=== PATIENT | female | born 1990 | race Caucasian/White ===

== ENCOUNTER 2017-03-26 15:43 | Emergency (ER) | payer MEDICAID, OTHER ==
[~2017-03-26] VITALS: Ht 162.6 cm; Wt 61.2 kg
[2017-03-26 17:22] LABS: METHADONE URINE NEGATIVE (NEGATIVE)
[2017-03-26 17:49] LABS: MEAN CORPUSCULAR HEMOGLOBIN 28.6 pg (27.0-33.0); MEAN CORPUSCULAR HGB CONC 33.1 g/dl (32.0-36.5); MEAN CORPUSCULAR VOLUME 86.3 fl (80.0-96.0); RED CELL DISTRIBUTION WIDTH 13.8 % (11.5-14.5); WHITE BLOOD COUNT 14.5 K/mm3 (4.0-10.0)
[2017-03-26 18:01] LABS: CONTROL LINE HCG INT CTR LINE PRESENT
[2017-03-26 18:16] LABS: ALBUMIN 3.9 GM/DL (3.2-5.2); ALBUMIN/GLOBULIN RATIO 1.03 (1.00-1.93); ALKALINE PHOSPHATASE 62 U/L (45-117); ALT/SGPT 18 U/L (12-78); ANION GAP 8 MEQ/L (8-16); AST/SGOT 19 U/L (15-37); BILIRUBIN,DIRECT 0.2 MG/DL (0.0-0.2); BILIRUBIN,TOTAL 0.7 MG/DL (0.2-1.0); BLOOD UREA NITROGEN 15 MG/DL (7-18); CALCIUM LEVEL 8.6 MG/DL (8.5-10.1); CARBON DIOXIDE LEVEL 26 MEQ/L (21-32); CHLORIDE LEVEL 105 MEQ/L (98-107); CREATININE FOR GFR 0.99 MG/DL (0.55-1.02); GLOMERULAR FILTRATION RATE > 60.0 (>60); GLUCOSE, FASTING 77 MG/DL (70-105); POTASSIUM SERUM 3.7 MEQ/L (3.5-5.1); SODIUM LEVEL 139 MEQ/L (136-145); TOTAL PROTEIN 7.7 GM/DL (6.4-8.2)
[2017-03-26 21:03] VITALS: BP 139/86
== END 2017-03-26 21:04 | disposition home or self-care (01) ==
LOC: M ED 16:56 → MERGE 16:56 → M ED 21:04
DX: F32.9 Major depressive disorder, single episode, unspecified (principal); F19.10 Other psychoactive substance abuse, uncomplicated; F17.200 Nicotine dependence, unspecified, uncomplicated

== ENCOUNTER 2017-03-27 04:05 | Emergency (ER) | payer OTHER ==
[~2017-03-27] VITALS: Ht 162.6 cm; Wt 63.6 kg
--- NOTE | 2017-03-27 06:03 | REP ---
Clinical: thoracic pain. Technique: AP, lateral, and swimmers views. Findings: Alignment and kyphosis is maintained. Vertebral bodies intact. No acute fracture / compression injury or subluxation. No degenerative changes. Paravertebral soft tissues are normal. Impression: Normal thoracic spine series. Signed by Isidro Rivera MD 03/27/2017 05:55 A
--- NOTE | 2017-03-27 06:03 | REP ---
Clinical: Posterior shoulder pain . Technique: Internal rotation, external rotation, and Y view left shoulder . Findings: No acute fracture or dislocation. The acromioclavicular and glenohumeral joints are intact. No periarticular calcifications or degenerative changes are appreciated. Sub acromial space is normal. Surrounding soft tissues are unremarkable. Impression: Normal left shoulder radiographs. Signed by Isidro Rivera MD 03/27/2017 05:54 A
[2017-03-27 06:07] VITALS: BP 105/62
== END 2017-03-27 06:15 | disposition home or self-care (01) ==
LOC: M ED 06:11
DX: S50.12XA Contusion of left forearm, initial encounter (principal); S50.11XA Contusion of right forearm, initial encounter; S40.272A Other superficial bite of left shoulder, initial encounter; M54.6 Pain in thoracic spine; Y04.8XXA Assault by other bodily force, initial encounter; Y92.89 Other specified places as the place of occurrence of the external cause; Y93.89 Activity, other specified; Y99.8 Other external cause status; F17.200 Nicotine dependence, unspecified, uncomplicated

== ENCOUNTER → 2017-07-17 | Outpatient (CLI) | payer MEDICAID | LOC: M OUTALCOH 08:04 | PROVIDERS: ATTEND Psychiatry & Neurology Psychiatry | DX: F11.20 Opioid dependence, uncomplicated (principal); F12.20 Cannabis dependence, uncomplicated; F14.20 Cocaine dependence, uncomplicated ==

== ENCOUNTER 2017-10-02 15:17 | Emergency (ER) | payer MEDICAID, OTHER ==
[~2017-10-02] VITALS: Ht 162.6 cm; Wt 60.0 kg
[2017-10-02] MEDS ORDERED: PERCOCET 5MG/325MG TAB PO ONE (16:30)
[2017-10-02] MEDS ORDERED: PERC5TAB12 PO (17:17)
[2017-10-02 17:30] VITALS: BP 122/70
--- NOTE | 2017-10-03 06:41 | REP ---
LEFT WRIST, FOUR VIEWS: There is no evidence of an acute fracture, dislocation or intrinsic bone disease. IMPRESSION: No fracture or dislocation. Signed by Sukhdev Velázquez MD 10/03/2017 08:33 P
--- NOTE | 2017-10-03 06:42 | REP ---
LEFT FOREARM, TWO VIEWS: There is no evidence of an acute fracture, dislocation or intrinsic bone disease. IMPRESSION: No fracture or dislocation. Signed by Sukhdev Velázquez MD 10/03/2017 08:33 P
== END 2017-10-02 17:31 | disposition home or self-care (01) ==
LOC: M ED 15:17
DX: S63.502A Unspecified sprain of left wrist, initial encounter (principal); Z72.0 Tobacco use; W01.198A Fall on same level from slipping, tripping and stumbling with subsequent striking against other object, initial encounter; Y92.410 Unspecified street and highway as the place of occurrence of the external cause; Y93.01 Activity, walking, marching and hiking; Y99.9 Unspecified external cause status

== ENCOUNTER 2017-11-29 16:37 | Emergency (ER) | payer OTHER ==
[2017-11-29] MEDS ORDERED: LIDOCAINE 1% MDV 20ML VIAL As Ordered (18:49)
[2017-11-29] MEDS: cefTRIAXone SOD 1 GM VIAL (J0696) IM (18:57)
[2017-11-29] MEDS: AUGMENTIN 875 MG TAB PO (18:57)
[2017-11-29] MEDS: OXYCODONE/APAP 5MG/325MG(BULK FOR ED) 1 TABLET PO (18:57)
== END 2017-11-29 19:02 | disposition home or self-care (01) ==
LOC: M ED 16:37
DX: K04.7 Periapical abscess without sinus (principal); S02.609D Fracture of mandible, unspecified, subsequent encounter for fracture with routine healing; X58.XXXD Exposure to other specified factors, subsequent encounter; Z98.890 Other specified postprocedural states
CPT/HCPCS: J0696

== ENCOUNTER → 2018-03-25 | Outpatient (CLI) | payer MEDICAID | LOC: M OUTALCOH 10:07 | DX: F11.20 Opioid dependence, uncomplicated (principal); F14.20 Cocaine dependence, uncomplicated; F12.20 Cannabis dependence, uncomplicated ==

== ENCOUNTER → 2018-05-30 | Outpatient (CLI) | payer MEDICAID | LOC: M OUTALCOH 11:00 | DX: Z13.9 Encounter for screening, unspecified (principal); F11.20 Opioid dependence, uncomplicated; F14.20 Cocaine dependence, uncomplicated ==

== ENCOUNTER 2018-06-18 10:01 | Outpatient (RCR) | payer MEDICAID | END 2018-07-13 | LOC: M OUTALCOH 10:01 | DX: F11.20 Opioid dependence, uncomplicated (principal); F14.20 Cocaine dependence, uncomplicated; F12.20 Cannabis dependence, uncomplicated; F17.200 Nicotine dependence, unspecified, uncomplicated ==

== ENCOUNTER 2018-07-14 10:49 | Outpatient (RCR) | payer MEDICAID | END 2018-08-13 | LOC: M OUTALCOH 10:49 | DX: F11.20 Opioid dependence, uncomplicated (principal); F14.20 Cocaine dependence, uncomplicated; F12.20 Cannabis dependence, uncomplicated; F17.200 Nicotine dependence, unspecified, uncomplicated ==

== ENCOUNTER 2018-08-15 08:00 | Outpatient (RCR) | payer MEDICAID | END 2018-09-12 | LOC: M OUTALCOH 08-19 10:00 | DX: F11.20 Opioid dependence, uncomplicated (principal); F14.20 Cocaine dependence, uncomplicated; F12.20 Cannabis dependence, uncomplicated; F17.200 Nicotine dependence, unspecified, uncomplicated ==

== ENCOUNTER 2018-08-21 15:45 | Emergency (ER) | payer OTHER, MEDICAID ==
[2018-08-21] MEDS: ALBUTEROL SULFATE 2.5 MG/0.5 ML INH NEB SOLN NEB (17:32)
== END 2018-08-21 18:31 | disposition home or self-care (01) ==
LOC: M ED 15:45
DX: J20.9 Acute bronchitis, unspecified (principal); F17.210 Nicotine dependence, cigarettes, uncomplicated
CPT/HCPCS: 71046

== ENCOUNTER 2018-10-10 14:00 | Outpatient (RCR) | payer MEDICAID ==
[~2018-10-10 14:00] MED LIST: AUGM875T28 PO; IBUPOTC PO; PERC5TAB12 PO; TESS100C PO; VENTAER INH
== END 2018-10-13 ==
LOC: M OUTALCOH 14:00
PROVIDERS: ATTEND Psychiatry & Neurology Psychiatry
DX: F11.20 Opioid dependence, uncomplicated (principal); F14.20 Cocaine dependence, uncomplicated; F17.200 Nicotine dependence, unspecified, uncomplicated

== ENCOUNTER 2018-11-10 16:00 | Outpatient (RCR) | payer MEDICAID | END 2018-11-13 | LOC: M OUTALCOH 16:00 | PROVIDERS: ATTEND Psychiatry & Neurology Psychiatry | DX: F11.20 Opioid dependence, uncomplicated (principal); F14.20 Cocaine dependence, uncomplicated; F12.20 Cannabis dependence, uncomplicated; F17.200 Nicotine dependence, unspecified, uncomplicated ==

== ENCOUNTER 2018-12-08 16:00 | Outpatient (RCR) | payer MEDICAID | END 2018-12-11 | LOC: M OUTALCOH 16:00 | PROVIDERS: ATTEND Psychiatry & Neurology Psychiatry | DX: F11.20 Opioid dependence, uncomplicated (principal); F14.20 Cocaine dependence, uncomplicated; F12.20 Cannabis dependence, uncomplicated; F17.200 Nicotine dependence, unspecified, uncomplicated ==

== ENCOUNTER 2019-01-05 16:00 | Outpatient (RCR) | payer MEDICAID | END 2019-01-11 | LOC: M OUTALCOH 16:00 | PROVIDERS: ATTEND Psychiatry & Neurology Psychiatry | DX: F11.20 Opioid dependence, uncomplicated (principal); F14.20 Cocaine dependence, uncomplicated; F12.20 Cannabis dependence, uncomplicated; F17.200 Nicotine dependence, unspecified, uncomplicated ==

== ENCOUNTER 2019-01-30 09:54 | Outpatient (RCR) | payer MEDICAID | END 2019-02-10 | LOC: M OUTALCOH 09:54 | PROVIDERS: ATTEND Psychiatry & Neurology Psychiatry | DX: F11.20 Opioid dependence, uncomplicated (principal); F14.20 Cocaine dependence, uncomplicated; F12.20 Cannabis dependence, uncomplicated; F17.200 Nicotine dependence, unspecified, uncomplicated ==

== ENCOUNTER 2019-02-13 09:43 | Outpatient (RCR) | payer MEDICAID | END 2019-03-13 | LOC: M OUTALCOH 09:43 | PROVIDERS: ATTEND Psychiatry & Neurology Psychiatry | DX: F11.20 Opioid dependence, uncomplicated (principal); F14.20 Cocaine dependence, uncomplicated; F12.20 Cannabis dependence, uncomplicated; F17.200 Nicotine dependence, unspecified, uncomplicated ==

== ENCOUNTER 2019-06-21 10:32 | Emergency (ER) | payer MEDICAID, OTHER ==
[~2019-06-21] VITALS: Ht 162.6 cm; Wt 63.6 kg
[2019-06-21 10:32] VITALS: BP 127/79
[2019-06-21] MEDS ORDERED: SUBO8MIS PO (10:37)
[2019-06-21] MEDS ORDERED: KETOROLAC 30 MG/ML VIAL (J1885) IV ONE (11:00)
[2019-06-21] MEDS ORDERED: NS 1,000 ML IV ONE (11:00)
--- NOTE | 2019-06-21 11:39 | REP ---
Clinical: Upper abdominal pain with positive Trevino's sign. Technique: Real time liu scale ultrasound examination using curved array transducer. Findings: Liver and visualized portions of the pancreas appear normal and without focal hepatic or pancreatic lesion identified. The gallbladder is unremarkable and without gallstones, wall thickening, or pericholecystic fluid. No biliary ductal dilatation is appreciated and the common bile duct measures 0.4 mm diameter. Right kidney is normal in reniform shape without hydronephrosis and measures 10.9 x 5.7 x 4.8 cm. No ascites. Impression: Essentially normal right upper quadrant abdominal ultrasound. Electronically Signed by Isidro Rivera MD 06/21/2019 11:30 A
[2019-06-21 11:56] LABS: BASO # 0.1 10^3/uL (0.0-0.2); BASO % 0.6 % (0.0-1.0); EOS # 0.2 10^3/uL (0.0-0.5); EOS % 1.5 % (0.0-3.0); HEMATOCRIT 41.4 % (36.0-47.0); HEMOGLOBIN 13.5 g/dl (12.0-15.5); LYMPH # 2.3 10^3/uL (1.5-5.0); MEAN CORPUSCULAR HEMOGLOBIN 29.3 pg (27.0-33.0); MEAN CORPUSCULAR HGB CONC 32.6 g/dl (32.0-36.5); MEAN CORPUSCULAR VOLUME 89.8 fl (80.0-96.0); MONO % 8.3 % (0.0-5.0); NEUTROPHILS # 8.4 10^3/uL (1.5-8.5); NEUTROPHILS % 70.4 % (36.0-66.0); PLATELET COUNT, AUTOMATED 249 10^3/uL (150-450); RED BLOOD COUNT 4.61 10^6/uL (4.00-5.40); WHITE BLOOD COUNT 11.9 10^3/uL (4.0-10.0)
[2019-06-21 12:17] LABS: ALBUMIN 3.7 GM/DL (3.2-5.2); ALT/SGPT 78 U/L (12-78); BILIRUBIN,DIRECT 0.1 MG/DL (0.0-0.2); BILIRUBIN,TOTAL 0.3 MG/DL (0.2-1.0); BLOOD UREA NITROGEN 9 MG/DL (7-18); CALCIUM LEVEL 9.1 MG/DL (8.5-10.1); CARBON DIOXIDE LEVEL 30 MEQ/L (21-32); CHLORIDE LEVEL 104 MEQ/L (98-107); CREATININE FOR GFR 0.76 MG/DL (0.55-1.30); GLOMERULAR FILTRATION RATE > 60.0 (>60); GLUCOSE, FASTING 99 MG/DL (70-100); LIPASE 65 U/L (73-393); POTASSIUM SERUM 4.2 MEQ/L (3.5-5.1); SODIUM LEVEL 138 MEQ/L (136-145); TOTAL PROTEIN 8.1 GM/DL (6.4-8.2)
--- NOTE | 2019-06-21 13:01 | REP ---
Clinical: Acute abdominal pain. Technique: Upright view of the chest with supine and upright views of the abdomen and pelvis. Findings: Frontal upright view of the chest demonstrates no acute cardiopulmonary process or free air below the diaphragm to suspect pneumoperitoneum. Supine and upright views of the abdomen and pelvis demonstrate nonspecific bowel gas pattern without obstruction or perforation. No organomegaly. No abnormal calcifications. Skeletal structures normal for age. Impression: Nonspecific bowel gas pattern. Electronically Signed by Isidro Rivera MD 06/21/2019 12:53 P
[2019-06-21] MEDS ORDERED: MIRA3350 PO (13:06)
[2019-06-21] MEDS ORDERED: IBUP-1022 PO (13:06)
== END 2019-06-21 13:14 | disposition home or self-care (01) ==
LOC: M ED 10:32
DX: K59.00 Constipation, unspecified (principal); Z79.899 Other long term (current) drug therapy
CPT/HCPCS: 36415; 74021; 76705; 80048; 80076; 81001; 83605; 83690; 84702; 85025; 87086; 96374; 99284; J1885

== ENCOUNTER 2020-10-08 22:17 | Emergency (ER) | payer OTHER ==
[~2020-10-08] VITALS: Ht 165.1 cm; Wt 75.0 kg
[~2020-10-08 22:17] MED LIST changes: +IBUP-1022 PO; +MIRA3350 PO; +SUBO8MIS PO
[2020-10-08] MEDS ORDERED: GABA-843 PO (22:21)
[2020-10-08] MEDS ORDERED: AUGMENTIN 875 MG TAB PO ONE (23:15)
[2020-10-08] MEDS ORDERED: KETOROLAC 60MG 2ML VIAL IM ONE (23:15)
[2020-10-09] MEDS ORDERED: IBUP80TA PO (00:02)
[2020-10-09] MEDS ORDERED: AUGM875T28 PO (00:02)
[2020-10-09 00:20] VITALS: BP 118/68
== END 2020-10-09 00:22 | disposition home or self-care (01) ==
LOC: M ED 22:17
DX: K04.7 Periapical abscess without sinus (principal); Z79.899 Other long term (current) drug therapy; F17.210 Nicotine dependence, cigarettes, uncomplicated
CPT/HCPCS: 96372; 99284; J1885

== ENCOUNTER 2020-11-08 17:46 | Emergency (ER) | payer OTHER ==
[~2020-11-08] VITALS: Ht 154.9 cm; Wt 89.7 kg
[~2020-11-08 17:46] MED LIST changes: +GABA-282 PO; +IBUP80TA PO
[2020-11-08] MEDS ORDERED: LIDOCAINE 2% MDV 20ML VIAL SC ONE (19:15)
[2020-11-08 20:05] VITALS: BP 138/93
== END 2020-11-08 20:07 | disposition home or self-care (01) ==
LOC: M ED 17:46
DX: S61.412A Laceration without foreign body of left hand, initial encounter (principal); W26.8XXA Contact with other sharp object(s), not elsewhere classified, initial encounter; Y92.018 Other place in single-family (private) house as the place of occurrence of the external cause; Z79.891 Long term (current) use of opiate analgesic; F17.210 Nicotine dependence, cigarettes, uncomplicated

== ENCOUNTER 2020-11-15 18:08 | Emergency (ER) | payer OTHER ==
[~2020-11-15] VITALS: Ht 162.6 cm; Wt 91.0 kg
[2020-11-15 18:08] VITALS: BP 137/81
--- OUTSIDE RECORDS SUMMARY | 2020-11-15 18:16 | CCD ---
Author Author [facility] Organization [facility] Address Unknown Phone Unavailable Support Name Relationship Address Phone ANA ROGEL Next Of Kin [address] [place] [address] MARISEL BILLY Next Of Kin [address] [facility] [address] [place] [address] UE Next Of Kin Unknown Unavailable COTY ROGEL Next Of Kin [address] [place] [address] LISA STEPHENS Next Of Kin [address] [place] [address] Re-disclosure Warning The records that you are about to access may contain information from federally-assisted alcohol or drug abuse programs. If such information is present, then the following federally mandated warning applies: This information has been disclosed to you from records protected by federal confidentiality rules (42 CFR part 2). The federal rules prohibit you from making any further disclosure of this information unless further disclosure is expressly permitted by the written consent of the person to whom it pertains or as otherwise permitted by 42 CFR part 2. A general authorization for the release of medical or other information is NOT sufficient for this purpose. The Federal rules restrict any use of the information to criminally investigate or prosecute any alcohol or drug abuse patient.The records that you are about to access may contain highly sensitive health information, the redisclosure of which is protected by Article 27-F of the [facility] Public Health law. If you continue you may have access to information: Regarding HIV / AIDS; Provided by facilities licensed or operated by the [facility] Office of Mental Health; or Provided by the [facility] Office for People With Developmental Disabilities. If such information is present, then the following [facility] mandated warning applies: This information has been disclosed to you from confidential records which are protected by state law. State law prohibits you from making any further disclosure of this information without the specific written consent of the person to whom it pertains, or as otherwise permitted by law. Any unauthorized further disclosure in violation of state law may result in a fine or senior living sentence or both. A general authorization for the release of medical or other information is NOT sufficient authorization for further disc losure. Family History Family Member Name Family Member Gender Family Member Status Date o f Status Description Data Source(s) Unknown Female Problem [facility] ([facility]) Medications Medication Brand Name Start Date Product Form Dose Route Admi nistrative Instructions Pharmacy Instructions Status Indications Reaction Description Data Source(s) 8-2 mg 10/21/2020 12:00:00 AM EST tablet, sublingual 56 PLACE TWO TABLETS UNDER THE TONGUE EVERY DAY MAXIMUM DAILY DOSE = [address] TWO TABLETS UNDER THE TONGUE EVERY DAY MAXIMUM DAILY DOSE = 2 TABLETS SOLD: 10/22/2020 [facility] 500 mg 10/11/2020 12:00:00 AM EST tablet 40 TAKE ONE TABLET BY MOUTH FOUR TIMES A DAY FOR 10 DAYS TAKE ONE TABLET BY MOUTH FOUR TIMES A DAY FOR 10 DAYS SOLD: 10/11/2020 [facility] 875-125 mg 10/09/2020 12:00:00 AM EST tablet 14 TAKE ONE TABLET BY MOUTH TWICE A DAY TAKE ONE TABLET BY MOUTH TWICE A DAY SOLD: 10/09/2020 [facility] 800 mg 10/09/2020 12:00:00 AM EST tablet 30 TAKE ONE TABLET BY MOUTH EVERY 8 HOURS NEEDED FOR PAIN TAKE ONE TABLET BY MOUTH EVERY 8 HOURS A S NEEDED FOR PAIN SOLD: 10/09/2020 [facility] 8-2 mg 09/27/2020 12:00:00 AM EST film [address] TWO FILMS UNDER THE TONGUE EVERY DAY, MAXIMUM DAILY DOSE = [address] TWO FILMS UNDER THE TONGUE EVERY DAY, MAXIMUM DAILY DOSE = 2 FILMS SOLD: 09/27/2020 [facility] 50 mg 09/05/2020 12:00:00 AM EST tablet 30 TAKE ONE TABLET BY MOUTH AT BEDTIME TAKE ONE TABLET BY MOUTH AT BEDTIME SOLD: 09/14/2020 [facility] 300 mg 08/31/2020 12:00:00 AM EST capsule 120 TAKE ONE CAPSULE BY MOUTH FOUR TIMES A DAY TAKE ONE CAPSULE BY MOUTH FOUR TIMES A DAY SOLD: 08/31/2020 [facility] 300 mg 08/31/2020 12:00:00 AM EST capsule 120 TAKE ONE CAPSULE BY MOUTH FOUR TIMES A DAY TAKE ONE CAPSULE BY MOUTH FOUR TIMES A DAY SOLD: 10/25/2020 [facility] 8-2 mg 08/31/2020 12:00:00 AM EST film 56 DISSOLVE 2 FILM STRIPS UNDER THE TONGUE ONCE DAILY , MAXIMUM DAILY DOSE = 2 FILM STRIPS DISSOLVE 2 FILM STRIPS UNDER THE TONGUE ONCE DAILY , MAXIMUM DAILY DOSE = 2 FILM STRIPS SOLD: 08/31/2020 [facility] 300 mg 08/31/2020 12:00:00 AM EST capsule 120 TAKE ONE CAPSULE BY MOUTH FOUR TIMES A DAY TAKE ONE CAPSULE BY MOUTH FOUR TIMES A DAY SOLD: 09/27/2020 [facility] 50 mg 08/24/2020 12:00:00 AM EST tablet 14 TAKE ONE TABLET AT BEDTIME MAXIMUM DAILY DOSE = 1 TAKE ONE TABLET AT BEDTIME MAXIMUM DAILY DOSE = 1 SOLD : 08/24/2020 [facility] 8-2 mg 08/03/2020 12:00:00 AM EDT film [address] PLACE TWO FILMS UNDER THE TONGUE EVERY DAY, MAXIMUM DAILY DOSE = [address] TWO FILMS UNDER THE TONGUE EVERY DAY, MAXIMUM DAILY DOSE = 2 FILMS SOLD: 08/03/2020 [facility] 8-2 mg 07/07/2020 12:00:00 AM EDT film 56 DISSOLVE 2 FILM STRIPS UNDER THE TONGUE ONCE DAILY , MAXIMUM DAILY DOSE = 2 FILMS STRIPS DISSOLVE 2 FILM STRIPS UNDER THE TONGUE ONCE DAILY , MAXIMUM DAILY DOSE = 2 FILMS STRIPS SOLD: 07/07/2020 [facility] 300 mg 06/10/2020 12:00:00 AM EDT capsule 120 TAKE ONE CAPSULE BY MOUTH FOUR TIMES A DAY TAKE ONE CAPSULE BY MOUTH FOUR TIMES A DAY SOLD: 07/07/2020 [facility] 300 mg 06/10/2020 12:00:00 AM EDT capsule 120 TAKE ONE CAPSULE BY MOUTH FOUR TIMES A DAY TAKE ONE CAPSULE BY MOUTH FOUR TIMES A DAY SOLD: 06/10/2020 [facility] 8-2 mg 06/10/2020 12:00:00 AM EDT film 56 PL[address] 2 FILMS UNDER THE TONGUE DAILY MAXIMUM DAILY DOSE = [address] 2 FILMS UNDER THE TONGUE DAILY MAX IMUM DAILY DOSE = 2 FILMS SOLD: 06/10/2020 [facility] 300 mg 06/10/2020 12:00:00 AM EDT capsule 120 TAKE ONE CAPSULE BY MOUTH FOUR TIMES A DAY TAKE ONE CAPSULE BY MOUTH FOUR TIMES A DAY SOLD: 08/03/2020 [facility] meloxicam 7.5 MG Oral Tablet MELOXICAM 05/23/2020 12:00:00 AM EDT tabl et 20 TAKE ONE TABLET BY MOUTH EVERY DAY TAKE ONE TABLET BY MOUTH EVERY DAY SOLD: 05/23/2020 [facility] 8-2 mg 05/12/2020 12:00:00 AM EDT film [address] TWO FILMS UNDER THE TONGUE EVERY DAY MAXIMUM DAILY DOSE = [address] TWO FILMS UNDER THE TONGUE EVERY DAY MAXIMUM DAILY DOSE = 2 FILMS SOLD: 05/12/2020 [facility] 8-2 mg 04/14/2020 12:00:00 AM EDT film [address]ACE TWO FILMS UNDER THE TONGUE EVERY DAY, MAXIMUM DAILY DOSE = [address] TWO FILMS UNDER THE TONGUE EVERY DAY, MAXIMUM DAILY DOSE = 2 FILMS SOLD: 04/14/2020 [facility] 300 mg 03/18/2020 12:00:00 AM EDT capsule 90 TAKE ONE CAPSULE BY MOUTH THREE TIMES A DAY TAKE ONE CAPSULE BY MOUTH THREE TIMES A DAY SOLD: 04/14/2020 [facility] 300 mg 03/18/2020 12:00:00 AM EDT capsule 90 TAKE ONE CAPSULE BY MOUTH THREE TIMES A DAY TAKE ONE CAPSULE BY MOUTH THREE TIMES A DAY SOLD: 03/18/2020 [facility] 8-2 mg 03/18/2020 12:00:00 AM EDT film [address] 2 FILMS UNDER THE TONGUE DAILY MAXIMUM DAILY DOSE = [address] 2 FILMS UNDER THE TONGUE DAILY MAX IMUM DAILY DOSE = 2 FILMS SOLD: 03/18/2020 [facility] 300 mg 03/18/2020 12:00:00 AM EDT capsule 90 TAKE ONE CAPSULE BY MOUTH THREE TIMES A DAY TAKE ONE CAPSULE BY MOUTH THREE TIMES A DAY SOLD: 05/12/2020 [facility] 8-2 mg 02/21/2020 12:00:00 AM EDT film [address] PLACE TWO FILMS UNDER THE TONGUE EVERY DAY, MAXIMUM DAILY DOSE = [address] TWO FILMS UNDER THE TONGUE EVERY DAY, MAXIMUM DAILY DOSE = 2 FILMS SOLD: 02/21/2020 [facility] 8-2 mg 01/23/2020 12:00:00 AM EDT film [address] TWO FILMS UNDER THE TONGUE EVERY DAY, MAXIMUM DAILY DOSE = [address] TWO FILMS UNDER THE TONGUE EVERY DAY, MAXIMUM DAILY DOSE = 2 FILMS SOLD: 01/25/2020 [facility] 300 mg 01/18/2020 12:00:00 AM EDT capsule 90 TAKE ONE CAPSULE BY MOUTH THREE TIMES A DAY TAKE ONE CAPSULE BY MOUTH THREE TIMES A DAY SOLD: 03/15/2020 [facility] 300 mg 01/18/2020 12:00:00 AM EDT capsule 90 TAKE ONE CAPSULE BY MOUTH THREE TIMES A DAY TAKE ONE CAPSULE BY MOUTH THREE TIMES A DAY SOLD: 02/16/2020 [facility] 300 mg 01/18/2020 12:00:00 AM EDT capsule 90 TAKE ONE CAPSULE BY MOUTH THREE TIMES A DAY TAKE ONE CAPSULE BY MOUTH THREE TIMES A DAY SOLD: 01/18/2020 [facility] 8-2 mg 12/27/2019 12:00:00 AM EDT film [address] TWO FILMS UNDER THE TONGUE EVERY DAY, MAXIMUM DAILY DOSE = [address] TWO FILMS UNDER THE TONGUE EVERY DAY, MAXIMUM DAILY DOSE = 2 FILLMS SOLD: 12/27/2019 [facility] 8-2 mg 11/30/2019 12:00:00 AM EST film 56 DISSOLVE 2 FILMS SUBLINGUALLY ONCE DAILY MAX = 2 FILMS/DAY DISSOLVE 2 FILMS SUBLINGUALLY ONCE DAILY MAX = 2 FILMS/DAY SOLD: 11/30/2019 [facility] 8-2 mg 11/02/2019 12:00:00 AM EST film [address] TWO FILMS UNDER THE TONGUE EVERY DAY MAXIMUM DAILY DOSE = [address] TWO FILMS UNDER THE TONGUE EVERY DAY MAXIMUM DAILY DOSE = 2 FILMS SOLD: 11/03/2019 [facility] 300 mg 10/31/2019 12:00:00 AM EST capsule 90 TAKE ONE CAPSULE BY MOUTH THREE TIMES A DAY MAXIMUM DAILY DOSE = 3 CAPSULES TAKE ONE CAPSULE BY MOUTH THREE TIMES A DAY MAXIMUM DAILY DOSE = 3 CAPSULES SOLD: 10/31/2019 [facility] 300 mg 10/31/2019 12:00:00 AM EST capsule 90 TAKE ONE CAPSULE BY MOUTH THREE TIMES A DAY MAXIMUM DAILY DOSE = 3 CAPSULES TAKE ONE CAPSULE BY MOUTH THREE TIMES A DAY MAXIMUM DAILY DOSE = 3 CAPSULES SOLD: 12/23/2019 [facility] 300 mg 10/31/2019 12:00:00 AM EST capsule 90 TAKE ONE CAPSULE BY MOUTH THREE TIMES A DAY MAXIMUM DAILY DOSE = 3 CAPSULES TAKE ONE CAPSULE BY MOUTH THREE TIMES A DAY MAXIMUM DAILY DOSE = 3 CAPSULES SOLD: 11/27/2019 [facility] 8-2 mg 10/06/2019 12:00:00 AM EST film [address]ACE TWO FILMS UNDER THE TONGUE EVERY DAY, MAXIMUM DAILY DOSE = [address] TWO FILMS UNDER THE TONGUE EVERY DAY, MAXIMUM DAILY DOSE = 2 FILMS SOLD: 10/06/2019 [facility] 300 mg 09/08/2019 12:00:00 AM EST capsule 90 TAKE ONE CAPSULE BY MOUTH THREE TIMES A DAY , MAXIMUM DAILY DOSE = 3 CAPSULES TAKE ONE CAPSULE BY MOUTH THREE TIMES A DAY , MAXIMUM DAILY DOSE = 3 CAPSULES SOLD: 10/05/2019 [facility] Insurance Providers Payer name Policy type / Coverage type Policy ID Covered democrat ID Covered democrat's relationship to kong Policy [place] Plan Information [facility] [id number] SP [id number] [facility]) O [id number] S [id number] [facility] [id number] SP [id number] [facility] [place] [place] [id number] SP [id number] [facility] [id number] SP [id number] [facility] [id number] S [id number] MEDICAID [id number] SP [id number] [facility] [id number] SP [id number] MEDICAID [id number] SP [id number] [facility] [place] [place] [id number] SP [id number] [facility] COMMUNITY PLAN [id number] 18 [id number] [facility] AMERICHOICE XIX HMO [id number] 18 [id number] [facility] Community Plan Medicaid Self [facility] AMERICHOICE HMO [id number] 18 [id number] AMERICHOICE [facility] XIX HMO-I/P [id number] 18 [id number] [facility] AMER[employer]HO[employer] XIX HMO [id number] 18 [id number] [facility]) O [id number] S [id number] [facility]) O [id number] S [id number] [facility] [place] [place] [id number] SP [id number] MEDICAID P [id number] S [id number]
[2020-11-15] MEDS ORDERED: DERMABOND TOPICAL SKIN ADHESIVE TOP ONE (18:30)
--- OUTSIDE RECORDS SUMMARY | 2020-11-15 18:31 | CCD ---
Author Author [facility] Organization [facility] Address Unknown Phone Unavailable Support Name Relationship Address Phone ANA ROGEL Next Of Kin [address] [place] [address] MARISEL BILLY Next Of Kin [address] [facility] [address] [place] [address] UE Next Of Kin Unknown Unavailable COTY ROGEL Next Of Kin [address] [place] [address] LISA STEPHENS Next Of Kin [address] [place] [address] Re-disclosure Warning The records that you are [...] is protected by Article 27-F of the [facility] Public Health law. If you continue you may have access to information: Regarding HIV / AIDS; Provided by facilities licensed or operated by the [facility] Office of Mental Health; or Provided by the [facility] Office for People With Developmental Disabilities. If such information is present, then the following [facility] mandated warning applies: This information has been [...] law may result in a fine or snf sentence or both. A general authorization for the release of medical or other information is NOT sufficient authorization for further disc losure. Family History Family Member Name Family Member Gender Family Member Status Date o f Status Description Data Source(s) Unknown Female Problem MEDENT ([facility]) Medications Medication Brand Name Start Date [...] type / Coverage type Policy ID Covered alliance party ID Covered alliance party's relationship to kong Policy [place] Plan Information [facility] [id number] SP [id number] [facility]) O [id number] S [id number] [facility] [id number] SP [id number] [facility] [id number] SP [id number] [facility] [id number] SP [id number] [facility] O [id number] S [id number] MEDICAID [id number] SP [id number] [facility] [id number] SP [id number] MEDICAID [id number] SP [id number] [facility] COMM[facility]AN [facility] [id number] SP [id number] [facility] COMMUNITY PLAN [id number] 18 [id number] [facility] AMERICHOICE XIX HMO [id number] 18 [id number] [facility] Community Plan Medicaid Self [facility] AMERICHOICE HMO [id number] 18 [id number] AMERICHOICE [facility] XIX HMO-I/P [id number] 18 [id number] [facility] AMERICHOICE XIX HMO [id number] 18 [id number] [facility]) O [id number] S [id number] [facility]) O [id number] S [id number] [facility] COMM[facility] [id number] SP [id number] MEDICAID P [id number] S [id number]
== END 2020-11-15 18:35 | disposition home or self-care (01) ==
LOC: M ED 18:08
DX: Z48.02 Encounter for removal of sutures (principal)

== ENCOUNTER 2021-08-04 11:29 | Emergency (ER) | payer OTHER ==
[~2021-08-04] VITALS: Ht 165.1 cm; Wt 82.6 kg
[2021-08-04 11:30] VITALS: BP 126/76
--- OUTSIDE RECORDS SUMMARY | 2021-08-04 11:35 | CCD ---
Author Author [facility] Organization [facility] Address Unknown Phone Unavailable Care Team Providers Care Stave Machine Tender Name Role Phone Maring, Moe PA Unavailable Unavailable Maring, Moe PA Unavailable Unavailable Maring, Moe PA Unavailable Unavailable Maring, Moe PA Unavailable Unavailable Maring, Moe PA Unavailable Unavailable Maring, Moe PA Unavailable Unavailable Maring, Moe PA Unavailable Unavailable Maring, Moe PA Unavailable Unavailable Maring, Moe PA Unavailable Unavailable Maring, Moe PA Unavailable Unavailable Maring, Moe PA Unavailable Unavailable Maring, Moe PA Unavailable Unavailable Maring, Moe PA Unavailable Unavailable Maring, Moe PA Unavailable Unavailable Maring, Moe PA Unavailable Unavailable Maring, Moe PA Unavailable Unavailable Re-disclosure Warning The records that you are [...] is protected by Article 27-F of the [facility] Public Health law. If you continue you may have access to information: Regarding HIV / AIDS; Provided by facilities licensed or operated by the [facility] Office of Mental Health; or Provided by the [facility] Office for People With Developmental Disabilities. If such information is present, then the following [facility] mandated warning applies: This information has been [...] law may result in a fine or detention sentence or both. A general authorization for the release of medical or other information is NOT sufficient authorization for further disc losure. Family History Family Member Name Family Member Gender Family Member Status Date o f Status Description Data Source(s) Unknown Female Problem MED[facility] ([facility]) Encounters Encounter Providers Location Date Indications Data Source(s ) Outpatient Attender: Moe WHALEY 11/26/19 02:11:49 PM EST - 11/26/2020 02:49:53 PM EST DocuTayfn ([facility] ) Medications Medication Brand Name Start Date Product Form Dose Route Admi nistrative Instructions Pharmacy Instructions Status Indications Reaction Description Data Source(s) 300 mg 07/31/2021 12:00:00 AM EDT capsule 84 TAKE ONE CAPSULE BY MOUTH 3-4 TIMES A DAY , MAXIMUM DAILY DOSE = 4 CAPSULES TAKE ONE CAPSULE BY MOUTH 3-4 TIMES A DAY , MAXIMUM DAILY DOSE = 4 CAPSULES SOLD: 08/01/2021 [facility] 8-2 mg 07/07/2021 12:00:00 AM EDT tablet, sublingual 56 DISSOLVE 2 TABLETS UNDER THE TONGUE ONCE DAILY , MAXIMUM DAILY DOSE = 2 TABLETS DISSOLVE 2 TABLETS UNDER THE TONGUE ONCE DAILY , MAXIMUM DAILY DOSE = 2 TABLETS SOLD: 07/07/2021 [facility] 8-2 mg 06/09/2021 12:00:00 AM EDT tablet, sublingual 56 PLACE TWO TABLETS UNDER THE TONGUE EVERY DAY MAXIMUM DAILY DOSE = 2 PLACE TWO TABLETS UNDER THE TONGUE EVERY DAY MAXIMUM DAILY DOSE = 2 SOLD: 06/09/2021 [facility] 8-2 mg 05/12/2021 12:00:00 AM EDT tablet, sublingual 56 PLACE TWO TABLETS UNDER THE TONGUE EVERY DAY MAXIMUM DAILY DOSE = TWO TABLETS PLACE TWO TABLETS UNDER THE TONGUE EVERY DAY MAXIMUM DAILY DOSE = TWO TABLETS SOLD: 05/12/2021 [facility] 300 mg 05/03/2021 12:00:00 AM EDT capsule 84 TAKE ONE CAPSULE BY MOUTH THREE TO FOUR TIMES A DAY TAKE ONE CAPSULE BY MOUTH THREE TO FOUR TIMES A DAY SO LD: 05/04/2021 [facility] 300 mg 05/03/2021 12:00:00 AM EDT capsule 84 TAKE ONE CAPSULE BY MOUTH THREE TO FOUR TIMES A DAY TAKE ONE CAPSULE BY MOUTH THREE TO FOUR TIMES A DAY SO LD: 06/01/2021 [facility] 300 mg 05/03/2021 12:00:00 AM EDT capsule 84 TAKE ONE CAPSULE BY MOUTH THREE TO FOUR TIMES A DAY TAKE ONE CAPSULE BY MOUTH THREE TO FOUR TIMES A DAY SO LD: 06/29/2021 [facility] 8-2 mg 04/13/2021 12:00:00 AM EDT tablet, sublingual 56 DISSOLVE 2 TABLETS UNDER THE TONGUE DAILY MAXIMUM DAILY DOSE = 2 DISSOLVE 2 TABLETS UNDER THE TONGUE DAILY MAXIMUM DAILY DOSE = 2 SOLD: 04/13/2021 [facility] 8-2 mg 04/06/2021 12:00:00 AM EDT tablet, sublingual 14 PLACE TWO TABLETS UNDER THE TONGUE EVERY DAY MAXIMUM DAILY DOSE = TWO TABLETS PLACE TWO TABLETS UNDER THE TONGUE EVERY DAY MAXIMUM DAILY DOSE = TWO TABLETS SOLD: 04/06/2021 [facility] 300 mg 03/09/2021 12:00:00 AM EDT capsule 84 TAKE ONE CAPSULE BY MOUTH 3 TO 4 TIMES A DAY TAKE ONE CAPSULE BY MOUTH 3 TO 4 TIMES A DAY SOLD: 04/07/2021 [facility] 300 mg 03/09/2021 12:00:00 AM EDT capsule 84 TAKE ONE CAPSULE BY MOUTH 3 TO 4 TIMES A DAY TAKE ONE CAPSULE BY MOUTH 3 TO 4 TIMES A DAY SOLD: 03/09/2021 [facility] 8-2 mg 03/09/2021 12:00:00 AM EDT tablet, sublingual 56 PLACE TWO TABLETS UNDER THE TONGUE EVERY DAY, MAXIMUM DAILY DOSE = 2 PLACE TWO TABLETS UNDER THE TONGUE EVERY DAY, MAXIMUM DAILY DOSE = 2 SOLD: 03/09/2021 [facility] 300 mg 02/15/2021 12:00:00 AM EDT capsule 84 TAKE ONE CAPSULE BY MOUTH FOUR TIMES A DAY TAKE ONE CAPSULE BY MOUTH FOUR TIMES A DAY SOLD: 02/15/2021 [facility] 8-2 mg 02/09/2021 12:00:00 AM EDT tablet, sublingual 56 PLACE TWO TABLETS UNDER THE TONGUE EVERY DAY MAXIMUM DAILY DOSE = [address] TWO TABLETS UNDER THE TONGUE EVERY DAY MAXIMUM DAILY DOSE = 2 TABLETS SOLD: 02/09/2021 [facility] 8-2 mg 01/12/2021 12:00:00 AM EDT tablet, sublingual 56 PLACE TWO TABLETS UNDER THE TONGUE EVERY DAY, MAXIMUM DAILY DOSE = 2 PLACE TWO TABLETS UNDER THE TONGUE EVERY DAY, MAXIMUM DAILY DOSE = 2 SOLD: 01/12/2021 [facility] 8-2 mg 12/15/2020 12:00:00 AM EST tablet, sublingual 56 DISSOLVE 2 TABLETS UNDER THE TONGUE ONCE DAILY , MAXIMUM DAILY DOSE = 2 TABLET DISSOLVE 2 TABLETS UNDER THE TONGUE ONCE DAILY , MAXIMUM DAILY DOSE = 2 TABLET SOLD: 12/15/2020 [facility] 2 % 11/26/2020 12:00:00 AM EST solution 100 USE 5ML DIRECTED FOUR TIMES A DAY FOR 5 DAYS USE 5ML DIRECTED FOUR TIMES A DAY FOR 5 DAYS SOLD: 2020 [facility] 800 mg 11/26/2020 12:00:00 AM EST tablet 30 [id number] 10 [id number] SOLD: 11/26/2020 [facility] 875-125 mg 11/26/2020 12:00:00 AM EST tablet 20 TAKE ONE TABLET BY MOUTH TWICE A DAY FOR 10 DAYS TAKE ONE TABLET BY MOUTH TWICE A DAY FOR 10 DAYS SOLD: 11/26/2020 [facility] gabapentin 300 MG Oral Capsule GABAPENTIN 11/22/2020 12:00:00 AM EST capsule 120 TAKE ONE CAPSULE BY MOUTH FOUR TIMES A D AY , MAXIMUM DAILY DOSE = 4 CAPSULES TAKE ONE CAPSULE BY MOUTH FOUR TIMES A DAY , MAXIMUM DAILY DOSE = 4 CAPSULES SOLD: 01/17/2021 [facility] 300 mg 11/22/2020 12:00:00 AM EST capsule 120 TAKE ONE CAPSULE BY MOUTH FOUR TIMES A DAY , MAXIMUM DAILY DOSE = 4 CAPSULES TAKE ONE CAPSULE BY MOUTH FOUR TIMES A DAY , MAXIMUM DAILY DOSE = 4 CAPSULES SOLD: 12/19/2020 [facility] 300 mg 11/22/2020 12:00:00 AM EST capsule 120 TAKE ONE CAPSULE BY MOUTH FOUR TIMES A DAY , MAXIMUM DAILY DOSE = 4 CAPSULES TAKE ONE CAPSULE BY MOUTH FOUR TIMES A DAY , MAXIMUM DAILY DOSE = 4 CAPSULES SOLD: 11/22/2020 [facility] 8-2 mg 11/18/2020 12:00:00 AM EST tablet, sublingual 56 PLACE TWO TABLETS UNDER THE TONGUE EVERY DAY, MAXIMUM DAILY DOSE = TWO TABLETS PLACE TWO TABLETS UNDER THE TONGUE EVERY DAY, MAXIMUM DAILY DOSE = TWO TABLETS SOLD: 11/18/2020 [facility] 8-2 mg 10/21/2020 12:00:00 AM EST tablet, [...] TIMES A DAY SOLD: 10/25/2020 [facility] 300 mg 08/31/2020 12:00:00 AM EST capsule 120 TAKE ONE CAPSULE BY MOUTH FOUR TIMES A DAY TAKE ONE CAPSULE BY MOUTH FOUR TIMES A DAY SOLD: 08/31/2020 [facility] 300 mg 08/31/2020 12:00:00 AM EST capsule 120 TAKE ONE CAPSULE BY MOUTH FOUR TIMES A DAY TAKE ONE CAPSULE BY MOUTH FOUR TIMES A DAY SOLD: 09/27/2020 [facility] 8-2 mg 08/31/2020 12:00:00 AM EST film 56 DISSOLVE 2 FILM STRIPS UNDER THE TONGUE ONCE DAILY , MAXIMUM DAILY DOSE = 2 FILM STRIPS DISSOLVE 2 FILM STRIPS UNDER THE TONGUE ONCE DAILY , MAXIMUM DAILY DOSE = 2 FILM STRIPS SOLD: 08/31/2020 [facility] 50 mg 08/24/2020 12:00:00 AM [...] TIMES A DAY SOLD: 08/03/2020 [facility] 8-2 mg 06/10/2020 12:00:00 AM [...] TIMES A DAY SOLD: 06/10/2020 [facility] Insurance Providers Payer name Policy type / Coverage type Policy ID Covered constitution party ID Covered constitution party's relationship to kong Policy [place] Plan Information [employer] Community Plan Medicaid 1783 Self [employer] COMMUNITY PLAN [id number] 18 [id number] [employer] COMMUNITY PLAN MCDO [id number] SP [id number] [facility] Commercial Insurance Co. [id number] Self [id number] Medicaid Medicaid [id number] Self [id number] [facility]([place]ID) O [id number] S [id number] MEDICAID [id number] SP [id number] MEDICAID [id number] SP [id number] [employer] COMMUNITY PLAN MCDHMO [id number] SP [id number] [employer] AMERICHOICE XIX HMO [id number] 18 [id number] [employer] AMERICHOICE HMO [id number] 18 [id number] AMERICHOICE UNHC XIX HMO-I/P [id number] 18 [id number] [employer] AMERICHOICE XIX HMO [id number] 18 [id number] [facility]([place]) O [id number] S [id number] [facility]([place]) O [id number] S [id number] [employer] COMMUNITY PLAN MCDHMO [id number] SP [id number] MEDICAID P [id number] S [id number] [employer] COMMUNITY PLAN MCDHMO [id number] SP [id number] [facility]([place]) O [id number] S [id number] [employer] COMMUNITY PLAN MCDHMO [id number] SP [id number] [facility] [id number] [id number] [facility] [id number] SP [id number] Problems, Conditions, and Diagnoses No Information Surgeries/Procedures No Information Results No Information Social History No Information
--- OUTSIDE RECORDS SUMMARY | 2021-08-04 15:10 | CCD ---
Author Author [facility] Organization [facility] Address Unknown Phone Unavailable Care Team Providers Care Waste Disposal Leakage Tester Name Role Phone Maring, Moe PA Unavailable [...] is protected by Article 27-F of the [facility] Public Health law. If you continue you may have access to information: Regarding HIV / AIDS; Provided by facilities licensed or operated by the [facility] Office of Mental Health; or Provided by the [facility] Office for People With Developmental Disabilities. If such information is present, then the following [facility] mandated warning applies: This information [...] law may result in a fine or nursing home sentence or both. A general authorization for the release of medical or other information is NOT sufficient authorization for further disc losure. Family History Family Member Name Family Member Gender Family Member Status Date o f Status Description Data Source(s) Unknown Female Problem MEDENT ([facility]) Encounters Encounter Providers Location Date Indications Data Source(s ) Outpatient Attender: Moe WHALEY 11/26/19 02:11:49 PM EST - 11/26/2020 02:49:53 PM EST [facility]uTap ([facility] ) Medications Medication Brand Name [...] 12:00:00 AM EST tablet 30 1TIDX 10 [id number] SOLD: 11/26/2020 [facility] 875-125 mg 11/26/2020 [...] Plan Medicaid 1783 Self [employer] COMM[employer]ITY PLAN [id number] 18 [id number] [employer] COMM[employer]ITY PLAN MCDO [id number] SP [id number] [facility] Commercial Insurance Co. [id number] Self [id number] Medicaid Medicaid [id number] Self [id number] [facility]([place]CAID) O [id number] S [id number] MEDICAID [id number] SP [id number] MEDICAID [id number] SP [id number] [employer] COMMUNITY PLAN MCDHMO [id number] SP [id number] [employer] AMERICHOICE XIX HMO [id number] 18 [id number] [employer] AMERICHOICE HMO [id number] 18 [id number] AMERICHOICE UNHC XIX HMO-I/P [id number] 18 [id number] [employer] AMERICHOICE XIX HMO [id number] 18 [id number] [facility]([place]) O [id number] S [id number] [facility]([place]) O [id number] S [id number] [employer] COMMUNITY PLAN MCDHMO [id number] SP [id number] MEDICAID P [id number] S [id number] [employer] COMMUNITY PLAN MCDHMO [id number] SP [id number] [facility]([place]ID) O [id number] S [id number] [employer] COMMUNITY PLAN MCDHMO [id number] SP [id number] [facility] COMM[employer] [facility] [place] [id number] SP [id number] [facility] [id number] SP [id number] Problems, Conditions, and Diagnoses No Information Surgeries/Procedures No Information Results No Information Social History No Information
[2021-08-04] MEDS ORDERED: NS 1,000 ML IV ONE (15:45)
[2021-08-04] MEDS ORDERED: KETOROLAC 30 MG/ML 1ML VIAL IV ONE (15:45)
[2021-08-04] MEDS ORDERED: dexameTHASONE 20MG/5ML VIAL (J1100 PER 1MG) IV ONE (15:45)
[2021-08-04] MEDS ORDERED: AMPICILLIN SOD/SULBACTAM SOD 3 GM in D5W MINI-BAG PLUS 100 ML IV ONE (15:45)
[2021-08-04 16:50] LABS: BASO # 0.1 10^3/uL (0.0-0.2); BASO % 0.6 % (0.0-1.0); EOS # 0.2 10^3/uL (0.0-0.5); EOS % 1.8 % (0.0-3.0); HEMATOCRIT 39.7 % (36.0-47.0); HEMOGLOBIN 12.9 g/dl (12.0-15.5); LYMPH % 23.4 % (24.0-44.0); MEAN CORPUSCULAR HEMOGLOBIN 28.9 pg (27.0-33.0); MEAN CORPUSCULAR HGB CONC 32.5 g/dl (32.0-36.5); MEAN CORPUSCULAR VOLUME 88.8 fl (80.0-96.0); MONO # 0.9 10^3/uL (0.0-0.8); MONO % 7.4 % (2.0-8.0); NEUTROPHILS # 8.4 10^3/uL (1.5-8.5); NEUTROPHILS % 66.4 % (36.0-66.0); PLATELET COUNT, AUTOMATED 232 10^3/uL (150-450); RED BLOOD COUNT 4.47 10^6/uL (4.00-5.40); WHITE BLOOD COUNT 12.7 10^3/uL (4.0-10.0)
[2021-08-04 17:12] LABS: ERYTHROCYTE SEDIMENTATION RATE 14 mm/hr (0-20)
[2021-08-04 17:21] LABS: ALBUMIN 3.4 GM/DL (3.2-5.2); ALT/SGPT 52 U/L (12-78); BILIRUBIN,DIRECT < 0.1 MG/DL (0.0-0.2); BILIRUBIN,TOTAL 0.2 MG/DL (0.2-1.0); C REACTIVE PROTEIN QUANTITATIV 2.71 MG/DL (0.00-0.30); TOTAL PROTEIN 7.7 GM/DL (6.4-8.2)
[2021-08-04 18:12] LABS: BLOOD UREA NITROGEN 8 MG/DL (7-18); CALCIUM LEVEL 8.5 MG/DL (8.5-10.1); CARBON DIOXIDE LEVEL 30 MEQ/L (21-32); CHLORIDE LEVEL 105 MEQ/L (98-107); CREATININE FOR GFR 0.85 MG/DL (0.55-1.30); GLOMERULAR FILTRATION RATE > 60.0 (>60); GLUCOSE, FASTING 83 MG/DL (70-100); POTASSIUM SERUM 3.8 MEQ/L (3.5-5.1); SODIUM LEVEL 139 MEQ/L (136-145)
[2021-08-04] MEDS ORDERED: ISOVUE-370 76% 100ML VIAL As Ordered ONE (18:16)
[2021-08-04 18:18] LABS: HCG, SERUM QUALITATIVE NEGATIVE (NEGATIVE)
--- NOTE | 2021-08-04 19:47 | REPVR ---
PROCEDURE INFORMATION: Exam: CT Maxillofacial With Contrast Exam date and time: 08/04/2021 6:27 PM Age: 31 years old Clinical indication: Eye pain; Right; Additional info: Swelling right cheek/eye TECHNIQUE: Imaging protocol: Computed tomography images of the face with intravenous contrast. Radiation optimization: All CT scans at this facility use at least one of these dose optimization techniques: automated exposure control; mA and/or kV adjustment per patient size (includes targeted exams where dose is matched to clinical indication); or iterative reconstruction. Contrast material: ISOVUE 370; Contrast volume: 75 ml; Contrast route: INTRAVENOUS (IV); COMPARISON: No relevant prior studies available. FINDINGS: Orbits: Orbits are normal. Globes are unremarkable. Bones/joints: No acute fracture. No destructive changes or signs of osteomyelitis. Numerous dental caries are noted. Paranasal sinuses: Clear. Soft tissues: Subcutaneous edema and mild skin thickening in the right facial soft tissues. 11 x 3 mm peripherally enhancing fluid collection adjacent to the right maxillary alveolar bone near the parotid duct (image 21, series 201) concerning for a small abscess. No other fluid collections are seen. No subcutaneous air. Lymph nodes: Mildly enlarged level 1 and 2 cervical lymph nodes measuring up to 17 mm. IMPRESSION: 1. Right facial cellulitis with small abscess adjacent to the right maxillary alveolar bone near the parotid duct. 2. Mild reactive cervical lymphadenopathy. Electronically signed by: Markus Herrera On 08/04/2021 19:46:59 PM
== END 2021-08-04 19:30 | disposition left against medical advice (07) ==
LOC: M ED 11:29
DX: R22.0 Localized swelling, mass and lump, head (principal); F17.210 Nicotine dependence, cigarettes, uncomplicated; Z79.891 Long term (current) use of opiate analgesic
CPT/HCPCS: 70487; 80047; 80048; 80076; 83605; 84702; 84703; 85025; 85652; 86140; 87040; 96365; 96366; 96375; 99283; J1100; J1885; Q9967

== ENCOUNTER 2022-03-10 16:11 | Emergency (ER) | payer OTHER ==
[~2022-03-10] VITALS: Ht 162.6 cm; Wt 70.5 kg
[2022-03-10 16:12] VITALS: BP 132/86
== END 2022-03-10 17:24 | disposition left against medical advice (07) ==
LOC: M ED 16:11
DX: Z53.21 Procedure and treatment not carried out due to patient leaving prior to being seen by health care provider (principal)

== ENCOUNTER 2022-10-24 15:23 | Emergency (ER) | payer OTHER ==
[~2022-10-24] VITALS: Ht 162.6 cm; Wt 64.5 kg
[2022-10-24 15:23] VITALS: BP 133/85
== END 2022-10-24 23:46 | disposition left against medical advice (07) ==
LOC: M ED 15:23
DX: Z53.21 Procedure and treatment not carried out due to patient leaving prior to being seen by health care provider (principal)

== ENCOUNTER → 2024-01-23 | Outpatient (CLI) | payer OTHER | LOC: M OUTALCOH 09:14 | PROVIDERS: ATTEND Psychiatry & Neurology Psychiatry | DX: F16.20 Hallucinogen dependence, uncomplicated (principal); F14.20 Cocaine dependence, uncomplicated; F12.20 Cannabis dependence, uncomplicated; F17.200 Nicotine dependence, unspecified, uncomplicated ==

== ENCOUNTER → 2025-02-22 | Outpatient (CLI) | payer MEDICAID ==
[~2025-02-22] MED LIST changes: +GABA-1172 PO; -GABA-282 PO
== END ==
LOC: M OUTALCOH 12:19
PROVIDERS: ATTEND Psychiatry & Neurology Psychiatry
DX: F14.20 Cocaine dependence, uncomplicated (principal); Z72.0 Tobacco use

== ENCOUNTER → 2025-05-13 | Outpatient (RCR) | payer MEDICAID | LOC: M OUTALCOH 04-14 16:00 | PROVIDERS: ATTEND Psychiatry & Neurology Psychiatry | DX: F16.20 Hallucinogen dependence, uncomplicated (principal); F14.20 Cocaine dependence, uncomplicated; F12.20 Cannabis dependence, uncomplicated; F17.200 Nicotine dependence, unspecified, uncomplicated ==

== ENCOUNTER 2025-06-09 11:23 | Outpatient (RCR) | payer MEDICAID ==
[~2025-06-09 11:23] MED LIST changes: -IBUP-1022 PO; +IBUP600T42 PO
== END 2025-06-13 ==
LOC: M OUTALCOH 11:23
PROVIDERS: ATTEND Psychiatry & Neurology Psychiatry
DX: F14.20 Cocaine dependence, uncomplicated (principal); Z72.0 Tobacco use

== ENCOUNTER 2025-07-07 14:25 | Outpatient (RCR) | payer MEDICAID | END 2025-07-13 | LOC: M OUTALCOH 14:25 | PROVIDERS: ATTEND Psychiatry & Neurology Psychiatry | DX: F16.20 Hallucinogen dependence, uncomplicated (principal); F14.20 Cocaine dependence, uncomplicated; F12.20 Cannabis dependence, uncomplicated; F17.200 Nicotine dependence, unspecified, uncomplicated ==

== ENCOUNTER 2025-07-21 13:46 | Outpatient (RCR) | payer MEDICAID | END 2025-08-13 | LOC: M OUTALCOH 13:46 | PROVIDERS: ATTEND Psychiatry & Neurology Psychiatry | DX: F14.20 Cocaine dependence, uncomplicated (principal); Z72.0 Tobacco use ==

== ENCOUNTER 2025-09-06 08:03 | Outpatient (RCR) | payer MEDICAID | END 2025-09-12 | LOC: M OUTALCOH 08:03 | PROVIDERS: ATTEND Psychiatry & Neurology Psychiatry | DX: F14.20 Cocaine dependence, uncomplicated (principal); F16.20 Hallucinogen dependence, uncomplicated; F12.20 Cannabis dependence, uncomplicated; F17.200 Nicotine dependence, unspecified, uncomplicated ==

== ENCOUNTER 2025-10-01 13:30 | Outpatient (RCR) | payer MEDICAID | END 2025-10-13 | LOC: M OUTALCOH 13:30 | PROVIDERS: ATTEND Psychiatry & Neurology Psychiatry | DX: F14.20 Cocaine dependence, uncomplicated (principal); Z72.0 Tobacco use ==